=== PATIENT | male | born 1995 | race Caucasian/White ===

== ENCOUNTER 2017-02-05 10:07 | Emergency (ER) | payer OTHER ==
[~2017-02-05] VITALS: Ht 188 cm; Wt 70.0 kg
[~2017-02-05 10:07] MED LIST: INTU4TAB PO; PAXI20TA26 PO; RISP1 PO
[2017-02-05 10:10] VITALS: BP 121/68; PULSE 64; RESP 14; TEMP 97.8; O2SAT 100
--- NOTE | 2017-02-05 11:04 | PD ---
HPI Chief Complaint: Psychiatric Symptoms Time Seen by Provider: 10:39 Travel History International Travel<30 days: No Contact w/Intl Traveler<30days: No Traveled to known affect area: No History of Present Illness HPI To 21-year-old man who presents to the emergency department requesting voluntary psychiatric evaluation. His a history of bipolar disorder. He was on multiple medications in the past. Is been hospitalized multiple times in the past. Reports stopping on medications for months because his dad threw away his medications. He is now in an adult homeless retirement and is brought in by staff. The patient and the staff complaining about patient's mood, outbursts , disruptive behavior, and with the patient caused disrespectful behavior. Patient denies suicidality or homicidality. Denies any hallucinations or delusions. Patient feels like to be much better on medication as he was before. He is requesting to see his the psychiatry team here. History Past Medical History Narrative Medical Bipolar disorder Social History Alcohol Use: No Tobacco Use: Yes Allergies-Medications (Allergen,Severity, Reaction): Coded Allergies: Tenex (Verified Allergy, Unknown, 09/17/10) Uncoded Allergies: RHINOTAN (Allergy, Severe, 07/16/04) Reported Meds & Prescriptions Reported Meds & Active Scripts Active Review of Systems Except as stated in HPI: all other systems reviewed are Neg Physical Exam Narrative GENERAL: Well-appearing 21-year-old man, no acute distress. SKIN: Focused skin assessment warm/dry. HEAD: Atraumatic. Normocephalic. EYES: Pupils equal and round. No scleral icterus. No injection or drainage. ENT: No nasal bleeding or discharge. Mucous membranes pink and moist. NECK: Trachea midline. No JVD. CARDIOVASCULAR: Regular rate and rhythm. No murmur appreciated. RESPIRATORY: No accessory muscle use. Clear to auscultation. Breath sounds equal bilaterally. GASTROINTESTINAL: Abdomen soft, non-tender, nondistended. Hepatic and splenic margins not palpable. MUSCULOSKELETAL: No obvious deformities. No clubbing. No cyanosis. No edema. NEUROLOGICAL: Awake and alert. No obvious cranial nerve deficits. Motor grossly within normal limits. Normal speech. PSYCHIATRIC: Appropriate mood and affect; insight and judgment normal. Data Data Last Documented VS Vital Signs Date Time Temp Pulse Resp B/P Pulse Ox O2 Delivery O2 Flow Rate FiO2 02/05/17 10:10 97.8 64 14 121/68 100 Room Air Orders Complete Blood Count With Diff (02/05/17 10:39) Comprehensive Metabolic Panel (02/05/17 10:39) Psych Screen (02/05/17 10:39) Drug Screen, Random Urine (02/05/17 10:39) Diet Regular Basic (02/05/17 Lunch) Labs Laboratory Tests Test 02/05/17 10:40 White Blood Count 4.3 TH/MM3 Red Blood Count 4.74 MIL/MM3 Hemoglobin 15.1 GM/DL Hematocrit 42.9 % Mean Corpuscular Volume 90.5 FL Mean Corpuscular Hemoglobin 31.9 PG Mean Corpuscular Hemoglobin 35.2 % Concent Red Cell Distribution Width 13.1 % Platelet Count 205 TH/MM3 Mean Platelet Volume 8.8 FL Neutrophils (%) (Auto) 51.6 % Lymphocytes (%) (Auto) 34.7 % Monocytes (%) (Auto) 11.8 % Eosinophils (%) (Auto) 1.4 % Basophils (%) (Auto) 0.5 % Neutrophils # (Auto) 2.2 TH/MM3 Lymphocytes # (Auto) 1.5 TH/MM3 Monocytes # (Auto) 0.5 TH/MM3 Eosinophils # (Auto) 0.1 TH/MM3 Basophils # (Auto) 0.0 TH/MM3 CBC Comment DIFF FINAL Differential Comment Sodium Level 138 MEQ/L Potassium Level 4.4 MEQ/L Chloride Level 105 MEQ/L Carbon Dioxide Level 26.7 MEQ/L Anion Gap 6 MEQ/L Blood Urea Nitrogen 14 MG/DL Creatinine 0.92 MG/DL Estimat Glomerular Filtration 104 ML/MIN Rate Random Glucose 76 MG/DL Calcium Level 10.1 MG/DL Total Bilirubin 1.0 MG/DL Aspartate Amino Transf 15 U/L (AST/SGOT) Alanine Aminotransferase 27 U/L (ALT/SGPT) Alkaline Phosphatase 82 U/L Total Protein 8.0 GM/DL Albumin 4.5 GM/DL Urine Opiates Screen NEG Urine Barbiturates Screen NEG Urine Amphetamines Screen NEG Urine Benzodiazepines Screen NEG Urine Cocaine Screen NEG Urine Cannabinoids Screen POS MDM Medical Decision Making Medical Screen Exam Complete: Yes Emergency Medical Condition: Yes Interpretation(s) LABS: Unremarkable. Positive for cannabinoids. Differential Diagnosis Bipolar disorder, adjustment reaction, substance abuse, other Narrative Course INITIAL: Is a 21-year-old male with history of bipolar disorder off medicines for months to his in complaining of increasing mood lability and disruptive behavior. He likely put back on medications like to see psychiatry. He has been hospitalized in the past. Denies SI or HI now. He seems calm and collected in the room at this point. We'll order basic labs, psychiatry to see. FINAL: Patient medically clear for voluntary psychiatric evaluation. Mental health screening discussed with the patient. Psychiatric screen ordered. Jonny Sandoval MD Feb 05, 2017 11:04
[2017-02-05 11:16] LABS: AUTOMATED NEUTROPHIL # 2.2 TH/MM3 (1.8-7.7); BASOPHIL % 0.5 % (0.0-2.0); EOSINOPHIL # 0.1 TH/MM3 (0-0.4); EOSINOPHIL % 1.4 % (0.0-4.0); HEMATOCRIT 42.9 % (39.0-51.0); HEMO FLAGS DIFF FINAL; LYMPH % 34.7 % (9.0-44.0); LYMPHOCYTE # 1.5 TH/MM3 (1.0-4.8); MEAN CELL VOLUME 90.5 FL (80.0-100.0); MEAN CORPUSCULAR HEMOGLOBIN 31.9 PG (27.0-34.0); MEAN CORPUSCULAR HGB CONC 35.2 % (32.0-36.0); MONO % 11.8 % (0.0-8.0); NEUT % 51.6 % (16.0-70.0); PLATELET COUNT 205 TH/MM3 (150-450); RED BLOOD COUNT 4.74 MIL/MM3 (4.50-5.90); RED CELL DISTRIBUTION WIDTH 13.1 % (11.6-17.2); WHITE BLOOD COUNT 4.3 TH/MM3 (4.0-11.0)
[2017-02-05 11:19] LABS: AMPHETAMINE, URINE NEG (NEG); BARBITURATES, URINE NEG (NEG); COCAINE, URINE NEG (NEG)
[2017-02-05 11:28] LABS: ANION GAP 6 MEQ/L (5-15); AST (GOT) 15 U/L (15-37); BICARBONATE 26.7 MEQ/L (21.0-32.0); BLOOD UREA NITROGEN 14 MG/DL (7-18); CHLORIDE 105 MEQ/L (98-107); GLOMERULAR FILTRATION RATE 104 ML/MIN (>89); POTASSIUM 4.4 MEQ/L (3.5-5.1); SODIUM (NA) 138 MEQ/L (136-145)
[2017-02-05 11:34] LABS: ALKALINE PHOSPHATASE 82 U/L (45-117); ALT (GPT) 27 U/L (12-78)
[2017-02-05 14:15] VITALS: BP 128/50; PULSE 64; RESP 18; TEMP 98.2; O2SAT 96
[2017-02-05] MEDS ORDERED: ZYPR5TAB PO (14:40)
[2017-02-05] MEDS ORDERED: BUPR150XL PO (14:41)
[2017-02-05] MEDS ORDERED: DEPA500T3 PO (14:41)
[2017-02-05 14:59] VITALS: BP 128/50; TEMP 97.3
--- NOTE | 2017-02-05 15:04 | PD ---
History of Present Illness Chief Complaint: Psychiatric Symptoms Time Seen by Provider: 14:30 Travel History International Travel<30 Days: No Contact w/Intl Traveler<30days: No Known affected area: No Legal Status Legal Status: Voluntary History of Present Illness: 21-year-old male who has been residing at [facility] for approximately 4 days. During that time period, he has been physically aggressive, physically threatening, [place], impulsive, irritable and unsafe. While the patient denies any actual suicidal or homicidal ideation at this time , he recognizes his behavior has been unsafe as he has threatened others. He has been off his psychotropic medicines for several months because his biological father discarded them. He feels he needs to be either admitted or placed back on his psychotropic medicines. He is feeling out of control and is having difficulty rover[place] for safety. He has a history of bipolar disorder and currently describes symptoms of depressed mood, irritability, anxiety, diminished self-esteem, etc. PFSH Past Medical History ADHD: Yes (ADHD, ADD) Cancer: No Cardiovascular Problems: No Diabetes: No Psychiatric: No Migraines: No Seizures: No Thyroid Disease: No Ulcer: No Past Surgical History Appendectomy: No Cholecystectomy: No Psychiatric History Psychiatric History Hx Psychiatric Treatment: SCHIZPHRENIC/BIPOLAR. This physician sees no significant objective evidence of schizophrenia. History of Inpatient Treatment: Yes Guns or firearms in home: No Social History Hx Alcohol Use: No Hx Tobacco Use: Yes Hx Substance Use: No Hx of Substance Use Treatment: No Allergies-Medications (Allergen,Severity, Reaction): Coded Allergies: Tenex (Verified Allergy, Unknown, 09/17/10) Uncoded Allergies: RHINOTAN (Allergy, Severe, 07/16/04) Reported Meds & Prescriptions Reported Meds & Active Scripts Active Wellbutrin Xl 24 HR (Bupropion HCl) 150 Mg Tab 150 Mg PO DAILY Depakote ER (Divalproex Sodium) 500 Mg [place] 500 Mg PO DAILY Zyprexa (Olanzapine) 5 Mg Tab 5 Mg PO HS Review of Systems Except as stated in HPI: all other systems reviewed are Neg Exam [place]: Person, Place, Date, Situation Mood: Anxious Affect: Appropriate Speech: Clear, Logical Eye Contact: Normal Memory Intact: Immediate, Recent, Remote Insight/Judgement Impaired but adequate. MDM Medical Decision Making Medical Record Reviewed: Yes Assessment/Plan This physician spoke with the patient's nurse as well as the patient. Even though the patient is experiencing mood instability and aggressive/threatening behavior, he would like to be cooperative and contract for safety. He would like to be placed back on his medications, which include Zyprexa, Depakote and Wellbutrin. This physician is agreeable to restarting his medications and informed consent was given. The patient was told to return to the emergency department if the medicines are not adequate to help him control his mood and behavior. At this time, because the patient is able to make a competent decision, despite the risks of him living at [facility], least restrictive alternative applies. As the patient has only been living there for 4 days, this physician would also like to give him a period of time to adjust. Orders Complete Blood Count With Diff (02/05/17 10:39) Comprehensive Metabolic Panel (02/05/17 10:39) Psych Screen (02/05/17 10:39) Drug Screen, Random Urine (02/05/17 10:39) Diet Regular Basic (02/05/17 Lunch) Results Vital Signs Date Time Temp Pulse Resp B/P Pulse Ox O2 Delivery O2 Flow Rate FiO2 02/05/17 14:15 98.2 64 18 128/50 96 Room Air 02/05/17 10:10 97.8 64 14 121/68 100 Room Air Laboratory Tests Test 02/05/17 10:40 White Blood Count 4.3 Red Blood Count 4.74 Hemoglobin 15.1 Hematocrit 42.9 Mean Corpuscular Volume 90.5 Mean Corpuscular Hemoglobin 31.9 Mean Corpuscular Hemoglobin 35.2 Concent Red Cell Distribution Width 13.1 Platelet Count 205 Mean Platelet Volume 8.8 Neutrophils (%) (Auto) 51.6 Lymphocytes (%) (Auto) 34.7 Monocytes (%) (Auto) 11.8 Eosinophils (%) (Auto) 1.4 Basophils (%) (Auto) 0.5 Neutrophils # (Auto) 2.2 Lymphocytes # (Auto) 1.5 Monocytes # (Auto) 0.5 Eosinophils # (Auto) 0.1 Basophils # (Auto) 0.0 CBC Comment DIFF FINAL Differential Comment Sodium Level 138 Potassium Level 4.4 Chloride Level 105 Carbon Dioxide Level 26.7 Anion Gap 6 Blood Urea Nitrogen 14 Creatinine 0.92 Estimat Glomerular Filtration 104 Rate Random Glucose 76 Calcium Level 10.1 Total Bilirubin 1.0 Aspartate Amino Transf 15 (AST/SGOT) Alanine Aminotransferase 27 (ALT/SGPT) Alkaline Phosphatase 82 Total Protein 8.0 Albumin 4.5 Urine Opiates Screen NEG Urine Barbiturates Screen NEG Urine Amphetamines Screen NEG Urine Benzodiazepines Screen NEG Urine Cocaine Screen NEG Urine Cannabinoids Screen POS Diagnosis Primary Impression: History of depressed bipolar disorder Additional Impression: Adjustment disorder with mixed disturbance of emotions and conduct Departure Forms: Tests/Procedures Patient Instructions: General Instructions, Medical Clearance for Psychiatric Care (ED) Additional Instructions: DISCHARGE HOME DX. BIPOLAR DISORDER FOLLOW-UP WITH PCP NEEDED RETURN TO ED FOR WORSENING PROBLEMS RESOURCE PACKAGE FOR SMA Prescriptions Bupropion HCl ER 24 HR (Wellbutrin Xl 24 HR)150 Mg [id number] Mg PO DAILY #30 TAB Ref 0 Prov:Al Carter MD 02/05/17 Divalproex ER (Depakote ER)500 Mg [id number] Mg PO DAILY #30 TAB Ref 0 Prov:Al Carter MD 02/05/17 Olanzapine (Zyprexa)5 Mg Tab5 Mg PO HS #30 TAB Ref 0 Prov:Al Carter MD 02/05/17 Disposition: 01 DISCHARGE HOME Condition: Stable Problem Qualifiers Al Carter MD Feb 05, 2017 15:04
== END 2017-02-05 15:02 | disposition home or self-care (01) ==
LOC: NEPD 10:07 → NEPJ 15:02
DX: F31.9 Bipolar disorder, unspecified (principal); F43.25 Adjustment disorder with mixed disturbance of emotions and conduct; F20.9 Schizophrenia, unspecified; Z79.899 Other long term (current) drug therapy; Z88.8 Allergy status to other drugs, medicaments and biological substances; Z87.891 Personal history of nicotine dependence
CPT/HCPCS: 80053; 80307; 85025; 99284